=== PATIENT | female | born 1955 | race Caucasian/White ===

== ENCOUNTER 2020-11-29 19:04 | Emergency (ER) | payer BC, OTHER ==
[~2020-11-29] VITALS: Ht 167.7 cm; Wt 73.1 kg
--- NOTE | 2020-11-29 19:27 | ED Syncope ---
General Stated Complaint: SYNCOPAL EPISODE Source of Information: Patient, Family History of Present Illness Date Seen by Provider: Nov 29, 2020 Time Seen by Provider: 19:07 Initial Comments 65 yo female presenting by private vehicle with family. She states she was talking to someone and then felt light headed and passed out and then woke up on the floor. She does not remember what happened until she woke up on the floor. She reports having a history of high blood pressure and high cholesterol. However she states that she is not taking any hydrochlorothiazide for over a month because of the doctor had not returned phone call for having a refill placed. She denies any chest pain, shortness of breath, abdominal pain, fever, chills, change in vision, pain with urination, diarrhea, vomiting. She had some mild nausea when she woke up but never threw up. She was evaluated by EMS se rvices according to family. EMS told family that patient had passed out and then had a 2 to 3-minute episode of seizure and reportedly stopped breathing and then woke up. Patient reports having a mild headache currently. She had this happen around 1745. She denies having any history of seizures or head injury. She has had 3 back surgeries in the past. She rates her headache is mild and denies any other injuries. She was walking in to the emergency department with a steady gait. Timing/Prior Episodes: No Prior History Symptoms Prior to Episode: Confusion (trouble concentrating), Nausea Precipitating Factors: None Loss of Consciousness: Prolonged (Minutes) (about 2 minutes from what EMS told family) Current Symptoms: No Blurred Vision, No Chest Pain, No Diaphoresis, No D izziness; Headache (mild); No Injury, No Lightheadedness, No Loss of Bladder Control, No Loss of Bowel Control, No Motionless; Nausea; No Pale, No Shallow/Rapid Breathing, No Weak/Absent Pulse, No Weakness Allergies and Home Medications Allergies Coded Allergies: No Known Drug Allergies (Unverified , 11/29/20) Patient Home Medication List Home Medication List Reviewed: Yes Review of Systems Constitutional: No chills, No diaphoresis, No fever EENTM: other (chronic hard of hearing); No ear discharge, No hearing loss, No ear pain, No blurred vision, No double vision, No eye pain, No vision loss, No epistaxis, No nose congestion, No nose pain Respiratory: No cough, No short of breath Cardiovascular: No chest pain, No palpitations; syncope Gastrointestinal: No abdominal pain, No diarrhea; nausea; No vomiting Genitourinary: No dysuria, No frequency Musculoskeletal: no symptoms reported Skin: No rash Psychiatric/Neurological: Headache; Denies Numbness, Denies Paresthesia; Seiz ure (EMS told family pt had seizure activity for 2 minutes when she passed out); Denies Tingling, Denies Tremors, Denies Weakness Past Meztxgf-[id number]-[id number] Hx Patient Social History Tobacco Use?: Yes Tobacco type used: Cigarettes Smoking Status: Current Everyday Smoker Past Medical History Surgeries: Yes Orthopedic (3 spine surgeries. hardware in cervical spine) Respiratory: No Cardiac: Yes High Cholesterol, Hypertension Neurological: No Reproductive Disorders: No Genitourinary: No Gastrointestinal: Yes Gastroesophageal Reflux Musculoskeletal: Yes Chronic Back Pain Endocrine: No HEENT: No Hearing Impairment: Hard of Hearing Cancer: No Psychosocial: Yes Sleep Difficulties Family Medical History Other Conditions/Hx (Son from Brain Cancer) Physical Exam Vital Signs Vital Signs - First Documented 11/29/20 19:07 Temp 37.0 Pulse 78 Resp 18 B/P (MAP) 152/88 (109) Pulse Ox 98 O2 Delivery Room Air Capillary Refill : Height, Weight, BMI Height: '" Weight: lbs. oz. kg; BMI Method: General Appearance: No Apparent Distress, WD/WN HEENT: PERRL/EOMI, TMs Normal, Pharynx Normal Neck: Normal Inspection, Non Tender; No Carotid Bruit Cardiovascular: Regular Rate, Rhythm, No Murmur, Normal Peripheral Pulses, Extra Beats Respiratory: Chest Non Tender, Lungs Clear, Normal Breath Sounds, No Accessory Muscle Use, No Respiratory Distress Gastrointestinal: Normal Bowel Sounds, No Pulsatile Mass, Non Tender, Soft Extremities: Normal Capillary Refill, Normal Inspection, No Pedal Edema Neurologic/Psychiatric: Alert, Oriented x3, plumbing drafter II-XII Norm as Tested Cranial Nerves: Normal Speech, PERRL Coordination/Gait: Normal Gait Motor/Sensory: No Motor Deficit, No Sensory Deficit Skin: Normal Color, Warm/Dry Progress/Results/Core Measures Results/Orders Lab Results Laboratory Tests Test 11/29/20 19:19 11/29/20 19:27 Range/Units White Blood Count 7.4 4.3-11.0 10^3/uL Red Blood Count 4.63 3.80-5.11 10^6/uL Hemoglobin 13.7 11.5-16.0 g/dL Hematocrit 42 35-52 % Mean Corpuscular Volume 90 80-99 fL Mean Corpuscular Hemoglobin 30 25-34 pg Mean Corpuscular Hemoglobin Concent 33 32-36 g/dL Red Cell Distribution Width 14.0 10.0-14.5 % Platelet Count 274 130-400 10^3/uL Mean Platelet Volume 10.9 9.0-12.2 fL Immature Granulocyte % (Auto) 0 % Neutrophils (%) (Auto) 60 42-75 % Lymphocytes (%) (Auto) 26 12-44 % Monocytes (%) (Auto) 8 0-12 % Eosinophils (%) (Auto) 5 0-10 % Basophils (%) (Auto) 1 0-10 % Neutrophils # (Auto) 4.5 1.8-7.8 X 10^3 Lymphocytes # (Auto) 2.0 1.0-4.0 X 10^3 Monocytes # (Auto) 0.6 0.0-1.0 X 10^3 Eosinophils # (Auto) 0.4 H 0.0-0.3 10^3/uL Basophils # (Auto) 0.1 0.0-0.1 10^3/uL Immature Granulocyte # (Auto) 0.0 0.0-0.1 10^3/uL Prothrombin Time 14.4 12.2-14.7 SEC INR Comment 1.1 0.8-1.4 Activated Partial Thromboplast Time 31 24-35 SEC Sodium Level 142 135-145 MMOL/L Potassium Level 4.3 3.6-5.0 MMOL/L Chloride Level 105 98-107 MMOL/L Carbon Dioxide Level 27 21-32 MMOL/L Anion Gap 10 5-14 MMOL/L Blood Urea Nitrogen 8 7-18 MG/DL Creatinine 0.92 0.60-1.30 MG/DL Estimat Glomerular Filtration Rate 61 BUN/Creatinine Ratio 9 Glucose Level 142 H 70-105 MG/DL Calcium Level 9.3 8.5-10.1 MG/DL Corrected Calcium 9.2 8.5-10.1 MG/DL Magnesium Level 2.2 1.6-2.4 MG/DL Total Bilirubin 0.3 0.1-1.0 MG/DL Aspartate Amino Transf (AST/SGOT) 19 5-34 U/L Alanine Aminotransferase (ALT/SGPT) 14 0-55 U/L Alkaline Phosphatase 70 40-136 U/L Troponin I < 0.30 <0.30 NG/ML Pro-B-Type Natriuretic Peptide 350.5 H <75.0 PG/ML Total Protein 7.0 6.4-8.2 GM/DL Albumin 4.1 3.2-4.5 GM/DL Lipase 38 8-78 U/L Serum Alcohol < 10 <10 MG/DL Urine Color YELLOW Urine Clarity CLEAR Urine pH 6.0 5-9 Urine Specific [place] 1.020 1.016-1.022 Urine Protein NEGATIVE NEGATIVE Urine Glucose (UA) NEGATIVE NEGATIVE Urine Ketones NEGATIVE NEGATIVE Urine Nitrite NEGATIVE NEGATIVE Urine Bilirubin NEGATIVE NEGATIVE Urine Urobilinogen 0.2 < = 1.0 MG/DL Urine Leukocyte Esterase NEGATIVE NEGATIVE Urine RBC (Auto) TRACE-I H NEGATIVE Urine RBC 0-2 /HPF Urine WBC 0-2 /HPF Urine Squamous Epithelial Cells RARE /HPF Urine Crystals NONE /LPF Urine Bacteria TRACE /HPF Urine Casts NONE /LPF Urine Mucus SMALL H /LPF Urine Culture Indicated NO Urine Opiates Screen POSITIVE H NEGATIVE Urine Oxycodone Screen NEGATIVE NEGATIVE Urine Methadone Screen NEGATIVE NEGATIVE Urine Propoxyphene Screen NEGATIVE NEGATIVE Urine Barbiturates Screen NEGATIVE NEGATIVE Ur Tricyclic Antidepressants Screen NEGATIVE NEGATIVE Urine Phencyclidine Screen NEGATIVE NEGATIVE Urine Amphetamines Screen NEGATIVE NEGATIVE Urine Methamphetamines Screen NEGATIVE NEGATIVE Urine Benzodiazepines Screen POSITIVE H NEGATIVE Urine Cocaine Screen NEGATIVE NEGATIVE Urine Cannabinoids Screen NEGATIVE NEGATIVE My Orders Orders - CLEMENT PEACOCK MD Cbc With Automated Diff (11/29/20 19:18) Magnesium (11/29/20 19:18) Chest 1 View Ap/Pa Only (11/29/20 19:18) Ekg Tracing (11/29/20 19:18) Comprehensive Metabolic Panel (11/29/20 19:18) Protime With Inr (11/29/20 19:18) Partial Thromboplastin Time (11/29/20 19:18) O2 (11/29/20 19:18) Monitor-Rhythm Ecg Trace Only (11/29/20 19:18) Ed Iv/Invasive Line Start (11/29/20 19:18) Lipase (11/29/20 19:18) Ua Culture If Indicated (11/29/20 19:18) Drug Screen Stat (Urine) (11/29/20 19:18) Alcohol (11/29/20 19:18) Ct Head Wo (11/29/20 19:18) Probnp Fs (11/29/20 19:18) Troponin I Fs (11/29/20 19:18) Vital Signs/I&O 11/29/20 11/29/20 19:07 20:31 Temp 37.0 Pulse 78 69 Resp 18 14 B/P (MAP) 152/88 (109) 145/67 Pulse Ox 98 98 O2 Delivery Room Air Room Air Progress Progress Note #1: Progress Note Obtain basic labs as well as electrocardiogram to look for cardiac sources of her syncope. CT scan of the head to look for bleeding, stroke, brain mass. Labs to look for an electrolyte imbalance, infection, UTI, heart attack. Chest x-ray to look for mass, pneumonia, fluid buildup. Progress Note #2: Time: 19:51 Progress Note CBC and UA without acute significant abnormality. Urine drug screen positive for opiates and benzodiazepines. CT head and CXR without acute process. ECG shows si nus rhythm without ST elevation but has a few premature atrial complexes. Progress Note #3: Progress Note Alcohol was negative. Chemistry did not show acute abnormality to account for her symptoms. Reassured pt about results not showing brain mass or tumor, stroke, bleeding, sinus infection, UTI, Electrolyte imbalance, heart attack. Will have her check with pcp and may need neurology testing such as EEG or MRI. She just had a big work up and saw cardiology for her GERD symptoms last month. She reports Cardiology said her heart was doing great. She has been having dizzy spells prior to tonight but has never had fainting episode or seizure like activity. advised to not drive for herself or for work until she can get clearance so that she does not have another episode like tonight happen while driving. Initial ECG Impression Date: Nov 29, 2020 Initial ECG Impression Time: 19:19 Initial ECG Rate: 75 Initial ECG Rhythm: Normal Sinus Initial ECG Comparisson: No Previous ECG Available Comment Normal sinus rhythm with a heart rate of 75 bpm. Atrial premature complexes. MT interval [address] elevation. QT interval 398 ms with a QTc interval 445 ms. There is no prior tracing available for comparison. Diagnostic Imaging Diagonstic Imaging: CT Plain Films/CT/US/NM/MRI: head Comments NAME: BREA NEVAREZ [employer] REC#: [id number] PT STATUS: REG ER : 1955 PHYSICIAN: CLEMENT PEACOCK MD ADMIT DATE: 11/29/20/ER FS Signed Date of Exam:11/29/20 CT HEAD WO INDICATION: Syncopal episode. Seizure like activity. EXAMINATION: CT brain without contrast, 11/29/2020. FINDINGS: Multiple axial images of the brain without contrast. There is no evidence for acute hemorrhage or infarct. There is no mass, mass effect, midline shift or hydrocephalus. The paranasal sinuses and mastoid air cells demonstrate no acute abnormality. IMPRESSION: No acute intracranial process. Dictated by: Dictated on workstation # [id number] Dict: 11/29/201945 Trans: 11/29/201951 [facility] [id number] Interpreted by: PAULA NESS MD Electronically signed by: PAULA NESS MD 11/29/201951 Reviewed: Reviewed by Me Diagonstic Imaging: Xray Plain Films/CT/US/NM/MRI: chest Comments NAME: BREA NEVAREZ [employer] REC#: [id number] PT STATUS: REG ER : 1955 PHYSICIAN: CLEMENT PEACOCK MD ADMIT DATE: 11/29/20/ER FS Draft Date of Exam:11/29/20 CHEST 1 VIEW AP/PA ONLY INDICATION: Syncopal episode. EXAMINATION: Chest, 11/29/2020. FINDINGS: Heart and pulmonary vasculature are normal. Lungs and pleural spaces are clear. No infiltrate or effusion. No pneumothorax. There is hyperdensity within the cervical region, likely due to prior surgery, correlate clinically. IMPRESSION: No acute cardiopulmonary process with other findings as above. Dictated on workstation # [id number] Dict: 11/29/201943 Trans: 11/29/201954 [facility] [id number] Interpreted by: PAULA NESS MD Electronically signed by: Reviewed: Reviewed by Me Departure Impression Primary Impression: Syncope and collapse Additional Impression: Seizure-like activity Disposition: 01 HOME, SELF-CARE Condition: Stable Departure-Patient Inst. Decision time for Depature: 20:27 Referrals: JORDYN LUGO DO (PCP/Family) Primary Care Physician Patient Instructions: Fainting, Adult ED Add. Discharge Instructions: Your CT scan of head, Chest Xray, Labs and urine all looked ok today with testing. Heart tests to look for damage or heart attack were also negative. Check back with Dr. Lugo and he may want to do some neurology testing or referral such as an EEG to look for seizure activity or MRI brain to look at your brain in finer detail. For now you should not drive yourself until cleared by your doctor. You would not want to have an episode like this happen while you were driving. Work/School Note: Work Release Form Date Seen in the Emergency Department: Nov 29, 2020 Return to Work: Nov 30, 2020 Restrictions: Need Release from Doctor Other Restrictions Listed Below: No driving until cleared by doctor CLEMENT PEACOCK MD Nov 29, 2020 19:27
[2020-11-29 19:45] LABS: BASOPHILS # (AUTO) 0.1 10^3/uL (0.0-0.1); BASOPHILS % (AUTO) 1 % (0-10); EOSINOPHILS # (AUTO) 0.4 10^3/uL (0.0-0.3); EOSINOPHILS % (AUTO) 5 % (0-10); HEMATOCRIT 42 % (35-52); HEMOGLOBIN 13.7 g/dL (11.5-16.0); LYMPHOCYTES % (AUTO) 26 % (12-44); MEAN CORPUSCULAR HEMOGLOBIN 30 pg (25-34); MEAN CORPUSCULAR HGB CONC 33 g/dL (32-36); MEAN CORPUSCULAR VOLUME 90 fL (80-99); MEAN PLATELET VOLUME 10.9 fL (9.0-12.2); MONOCYTES # (AUTO) 0.6 X 10^3 (0.0-1.0); MONOCYTES % (AUTO) 8 % (0-12); NEUTROPHILS # (AUTO) 4.5 X 10^3 (1.8-7.8); NEUTROPHILS % (AUTO) 60 % (42-75); PLATELET COUNT 274 10^3/uL (130-400); WHITE BLOOD COUNT 7.4 10^3/uL (4.3-11.0)
[2020-11-29 19:46] LABS: BILIRUBIN,URINE NEGATIVE (NEGATIVE); CLARITY,URINE CLEAR; COLOR,URINE YELLOW; GLUCOSE, URINE (UA) NEGATIVE (NEGATIVE); KETONES,URINE NEGATIVE (NEGATIVE); LEUKOCYTE ESTERASE ,URINE NEGATIVE (NEGATIVE); NITRITE,URINE NEGATIVE (NEGATIVE); PROTEIN,URINE NEGATIVE (NEGATIVE); RBC,URINE 0-2 /HPF; WBC,URINE 0-2 /HPF
[2020-11-29 19:47] LABS: AMPHETAMINE SCREEN, URINE NEGATIVE (NEGATIVE); BACTERIA,URINE TRACE /HPF; BARBITURATE SCREEN URINE NEGATIVE (NEGATIVE); BENZODIAZEPINES SCREEN URINE POSITIVE (NEGATIVE); CANNABINOID SCREEN, URINE NEGATIVE (NEGATIVE); COCAINE SCREEN URINE NEGATIVE (NEGATIVE); METHADONE STAT NEGATIVE (NEGATIVE); METHAMPHETAMINE SCREEN URINE S NEGATIVE (NEGATIVE); OPIATE SCREEN URINE POSITIVE (NEGATIVE); OXYCODONE STAT NEGATIVE (NEGATIVE); PROPOXYPHENE STAT NEGATIVE (NEGATIVE); SQUAMOUS EPITHELIAL CELL,UR RARE /HPF; TRICYCLIC ANTIDEPRESSANTS SCRE NEGATIVE (NEGATIVE)
--- NOTE | 2020-11-29 19:51 | Diagnostic Imaging Report ---
INDICATION: Syncopal episode. Seizure like activity. EXAMINATION: CT brain without contrast, 11/29/2020. FINDINGS: Multiple axial images of the brain without contrast. There is no evidence for acute hemorrhage or infarct. There is no mass, mass effect, midline shift or hydrocephalus. The paranasal sinuses and mastoid air cells demonstrate no acute abnormality. IMPRESSION: No acute intracranial process. Dictated by: Dictated on workstation # [id number]
--- NOTE | 2020-11-29 19:55 | Diagnostic Imaging Report ---
INDICATION: Syncopal episode. EXAMINATION: Chest, 11/29/2020. FINDINGS: Heart and pulmonary vasculature are normal. Lungs and pleural spaces are clear. No infiltrate or effusion. No pneumothorax. There is hyperdensity within the cervical region, likely due to prior surgery, correlate clinically. IMPRESSION: No acute cardiopulmonary process with other findings as above. Dictated by: Dictated on workstation # [email or web address]
[2020-11-29 20:05] LABS: INR 1.1 (0.8-1.4); PROTHROMBIN TIME PATIENT 14.4 SEC (12.2-14.7)
[2020-11-29 20:11] LABS: ALANINE AMINOTRANSFERASE 14 U/L (0-55); ALKALINE PHOSPHATASE 70 U/L (40-136); BILIRUBIN,TOTAL 0.3 MG/DL (0.1-1.0); BUN/CREATININE RATIO 9; CALCIUM 9.3 MG/DL (8.5-10.1); CARBON DIOXIDE 27 MMOL/L (21-32); CHLORIDE 105 MMOL/L (98-107); CREATININE SERUM 0.92 MG/DL (0.60-1.30); GFR ESTIMATED 61; GLUCOSE 142 MG/DL (70-105); MAGNESIUM 2.2 MG/DL (1.6-2.4); POTASSIUM 4.3 MMOL/L (3.6-5.0); SODIUM 142 MMOL/L (135-145)
[2020-11-29 20:12] LABS: ALBUMIN 4.1 GM/DL (3.2-4.5); LIPASE 38 U/L (8-78)
[2020-11-29 20:31] VITALS: BP 145/67
== END 2020-11-29 20:31 | disposition home or self-care (01) ==
LOC: ER FS 19:06
DX: R55 Syncope and collapse (principal); R29.818 Other symptoms and signs involving the nervous system; I10 Essential (primary) hypertension; F17.210 Nicotine dependence, cigarettes, uncomplicated
CPT/HCPCS: 36415; 70450; 71045; 80053; 80306; 81000; 83690; 83735; 83880; 84484; 85025; 85610; 85730; 93041; 99284; G0480; 80320; 93005